=== PATIENT | male | born 1970 | race Caucasian/White ===

== ENCOUNTER 2016-12-16 15:31 | Emergency (ER) | payer SELFPAY ==
[2016-12-16] MEDS ORDERED: METOPROLOL TART25 M1 PO (15:50)
[2016-12-16 16:24] LABS: URINE BILIRUBIN NEGATIVE (NEG); URINE BLOOD NEGATIVE (NEG); URINE GLUCOSE (UA) NEGATIVE (NEG); URINE KETONE NEGATIVE (NEG); URINE LEUKOCYTE ESTERASE POSITIVE (NEG); URINE NITRITE NEGATIVE (NEG); URINE PROTEIN SMALL (NEG)
[2016-12-16 16:25] LABS: URINE APPEARANCE CLEAR; URINE COLOR YELLOW
[2016-12-16 16:33] LABS: URINE EPITHELIAL CELLS 0-2 /[HPF] (0-10); URINE RBC 0 /[HPF] (0-5); URINE WBC 0-2 /[HPF] (0-5)
[2016-12-16] MEDS ORDERED: NORCO 5/3251 TAB PO (17:05)
== END 2016-12-16 17:14 ==
LOC: EDMED 15:31
PROVIDERS: Emergency Medicine
DX: N50.811 Right testicular pain (principal); N50.89 Other specified disorders of the male genital organs; I10 Essential (primary) hypertension; Z79.899 Other long term (current) drug therapy